=== PATIENT | male | born 1970 | race African-American/Black ===

== ENCOUNTER 2017-03-17 17:23 | Emergency (ER) | payer BC ==
[~2017-03-17] VITALS: Ht 180.3 cm; Wt 83.9 kg
[~2017-03-17 17:23] MED LIST: ACCUNEB SO1.25 MG/1; CIPROFLOXACIN500 M1 PO; FLAGYL500 MG PO; NOHOMEMEDICATIONS; NORCO 5-325 TA1 EACH PO
[2017-03-17 18:09] LABS: BASOPHILS 0.7 % (0.0-2.0); EOSINOPHILS 1.8 % (0.0-3.0); HEMATOCRIT 47.6 % (42.0-52.0); HEMOGLOBIN 16.2 gm/dL (14.0-18.0); LYMPHOCYTES 29.9 % (24.0-44.0); MCH 33.9 pg (26.0-34.0); MCHC 34.1 g/dL (28.0-37.0); MCV 99.5 fL (80.0-100.0); MONOCYTES 6.6 % (1.0-8.0); PLATELET COUNT 193 thou/uL (150-400); RBC 4.79 mil/uL (4.50-6.00); RDW 13.2 % (10.5-14.5); WBC 4.9 thou/uL (4.0-11.0)
[2017-03-17 18:11] LABS: MANUAL DIFF NO
[2017-03-17 18:20] LABS: ANION GAP 9 mmol/L (7-16); BUN 7 mg/dL (7-18); CHLORIDE 106 mmol/L (98-107); CO2 27 mmol/L (21-32); CREATININE 0.9 mg/dL (0.7-1.3); GLUCOSE 103 mg/dL (74-106); POTASSIUM 3.8 mmol/L (3.5-5.1); SODIUM 142 mmol/L (136-145)
[2017-03-17 18:26] LABS: ALBUMIN 3.5 g/dL (3.4-5.0); ALKALINE PHOSPHATASE 90 U/L (46-116); DIRECT BILIRUBIN < 0.1 mg/dL (<0.1-0.3); SGOT 27 U/L (15-37); SGPT 31 U/L (30-65); TOTAL BILIRUBIN 0.4 mg/dL (<0.1-1.0); TOTAL PROTEIN 7.6 g/dL (6.4-8.2)
[2017-03-17] MEDS ORDERED: FLAGYL500 MG PO (20:01)
[2017-03-17] MEDS ORDERED: NORCO 5-325 TA1 EACH PO (20:01)
[2017-03-17] MEDS ORDERED: CIPROFLOXACIN500 M1 PO (20:01)
[2017-03-17] MEDS ORDERED: CATAPRES0.1 MG PO (20:02)
[2017-03-17 20:04] VITALS: BP 147/83
== END 2017-03-17 20:20 | disposition home or self-care (01) ==
LOC: ER 17:23
PROVIDERS: Emergency Medicine
DX: K57.92 Diverticulitis of intestine, part unspecified, without perforation or abscess without bleeding (principal); R03.0 Elevated blood-pressure reading, without diagnosis of hypertension; F10.99 Alcohol use, unspecified with unspecified alcohol-induced disorder

== ENCOUNTER 2018-02-17 14:05 | Emergency (ER) | payer OTHER ==
[~2018-02-17] VITALS: Ht 180.3 cm; Wt 90.7 kg
[~2018-02-17 14:05] MED LIST changes: +CATAPRES0.1 MG PO
[2018-02-17 15:01] LABS: ABSOLUTE NEUTROPHILS 3.7 thou/uL (1.4-8.2); BASOPHILS 0.6 % (0.0-2.0); EOSINOPHILS 0.6 % (0.0-3.0); HEMATOCRIT 41.1 % (42.0-52.0); HEMOGLOBIN 14.3 gm/dL (14.0-18.0); LYMPHOCYTES 25.2 % (24.0-44.0); MCH 34.7 pg (26.0-34.0); MCHC 34.8 g/dL (28.0-37.0); MCV 99.8 fL (80.0-100.0); MONOCYTES 5.1 % (1.0-8.0); PLATELET COUNT 188 thou/uL (150-400); POLYS 68.5 % (36.0-66.0); RBC 4.11 mil/uL (4.50-6.00); RDW 12.8 % (10.5-14.5); WBC 5.4 thou/uL (4.0-11.0)
[2018-02-17 15:05] LABS: CALCIUM 8.8 mg/dL (8.5-10.1); CREATININE 0.8 mg/dL (0.7-1.3); POTASSIUM 3.6 mmol/L (3.5-5.1)
[2018-02-17 16:07] VITALS: BP 157/85
[2018-02-17] MEDS ORDERED: CATAPRES0.2 M1 PO (16:09)
== END 2018-02-17 16:13 | disposition home or self-care (01) ==
LOC: ER 14:05
PROVIDERS: Emergency Medicine
DX: K42.9 Umbilical hernia without obstruction or gangrene (principal)